=== PATIENT | male | born 1950 | race African-American/Black ===

== ENCOUNTER 2017-12-20 04:44 | Emergency (ER) | payer MEDICARE, MEDICAID ==
[~2017-12-20] VITALS: Ht 177.8 cm; Wt 109.0 kg
[~2017-12-20 04:44] MED LIST: HYDR-523 PO
[2017-12-20] MEDS: MORPHINE SULFATE 4 MG/ML CPJ (NOT FOR IM USE) IV STA (07:01)
[2017-12-20] MEDS: ONDANSETRON HCL 4MG/2ML VIAL IV STA (07:01)
[2017-12-20 07:33] LABS: INR 1.1; PROTHROMBIN TIME 11.4 sec (9.4-11.6)
[2017-12-20 07:37] LABS: BASOPHILS % 0.6 % (0.0-2.0); CHLORIDE 105 mEq/L (98-107); HEMATOCRIT. 32.9 % (42.0-52.0); LYMPHOCYTES % 16.1 % (20.0-50.0); MEAN CORPUSCULAR HEMOGLOBIN 28.8 pg (28.0-32.0); MEAN CORPUSCULAR VOLUME 86.3 fL (80.0-94.0); MEAN PLATELET VOLUME 7.6 fl (7.4-10.4); MONOCYTES % 6.9 % (2.0-8.0); NEUTROPHILS % 74.4 % (40.0-76.0); PLATELET 617 x1000/uL (130-400); RED BLOOD CELL COUNT 3.81 mill/uL (4.7-6.1); RED CELL DISTRIBUTION WIDTH 15.7 % (11.6-14.6)
[2017-12-20] MEDS: KETOROLAC 60MG/2ML VIAL IM ONE (09:03)
[2017-12-20 13:01] VITALS: BP 128/58
== END 2017-12-20 13:05 | disposition home or self-care (01) ==
LOC: ER 04:44
DX: I73.9 Peripheral vascular disease, unspecified (principal); I77.1 Stricture of artery; I77.2 Rupture of artery; M10.9 Gout, unspecified; I99.8 Other disorder of circulatory system; F17.200 Nicotine dependence, unspecified, uncomplicated
CPT/HCPCS: 36415; 71045; 73610; 80053; 83605; 83880; 85025; 85610; 87040; 93971; 96372; 99285; J1885